=== PATIENT | male | born 1960 | race Two or more races ===

== ENCOUNTER 2016-10-21 11:04 | Emergency (ER) | payer SELFPAY ==
[~2016-10-21] VITALS: Ht 175.3 cm; Wt 87.8 kg
[2016-10-21 11:06] VITALS: BP 148/81
== END 2016-10-21 12:00 | disposition home or self-care (01) ==
LOC: ED 11:54
DX: S39.012A Strain of muscle, fascia and tendon of lower back, initial encounter (principal); F17.200 Nicotine dependence, unspecified, uncomplicated; X58.XXXA Exposure to other specified factors, initial encounter; Y93.89 Activity, other specified; Y92.89 Other specified places as the place of occurrence of the external cause; Y99.8 Other external cause status
CPT/HCPCS: 99281

== ENCOUNTER 2018-06-26 14:40 | Inpatient (IN) | payer MEDICAID, OTHER ==
[~2018-06-26] VITALS: Ht 175.3 cm; Wt 98.3 kg
[2018-06-26] MEDS ORDERED: ALBUTEROL/IPRATROPIUM 2.5MG/0.5MG, 3 ML NPPB ONE (15:00)
--- NOTE | 2018-06-26 15:01 | NUR ---
EKG DONE IN TRIAGE, PT PLACED ON 2L OXYGEN VIA NC IN TRIAGE.
[2018-06-26 15:37] LABS: BASOPHILS # (AUTO) 0.03 x10^3/uL (0-0.1); BASOPHILS % (AUTO) 0 % (0-1); EOSINOPHILS # (AUTO) 0.03 x10^3/uL (0-0.4); EOSINOPHILS % (AUTO) 0 % (1-7); LYMPHOCYTES # (AUTO) 1.01 x10^3/uL (1-3.4); LYMPHOCYTES % (AUTO) 12 % (22-44); MD NO; MEAN CORPUSCULAR HGB CONC 34.6 g/dL (33.2-36.2); MEAN CORPUSCULAR VOLUME 92.6 fL (81-97); MEAN PLATELET VOLUME 9.5 fL (7.4-10.4); MONOCYTES % (AUTO) 12 % (2-9); NEUTROPHILS % (AUTO) 75 % (42-75); PLATELET COUNT 124 x10^3/uL (130-400); RED BLOOD COUNT 5.51 x10^6/uL (4.38-5.82); RED CELL DISTRIBUTION WIDTH 12.4 % (9.4-14.8)
--- NOTE | 2018-06-26 15:42 | NUR ---
Pt wheeled to room with EDT. Pt ambulatory in room to change into gown and get on gurney. Pt c/o shortness of breath and a feeling that he can't describe in the left side of his chest/shoulder. Pt states that he has been unable to sleep. Pt also states that when he eats, he gets bloated, pt denies N/V/D, states he hasn't had a BM in 1.5 days.
[2018-06-26 15:47] LABS: ANION GAP 7 mmol/L (5-15); CALCIUM 8.4 mg/dL (8.5-10.1); CHLORIDE 107 mmol/L (98-107); CREATININE 1.02 mg/dL (0.7-1.3)
[2018-06-26 15:50] LABS: TROPONIN I < 0.015 ng/mL (0.000-0.045)
[2018-06-26] MEDS ORDERED: ALBUTEROL/IPRATROPIUM 2.5MG/0.5MG, 3 ML ONE (16:09)
--- NOTE | 2018-06-26 16:11 | NUR ---
RT at bedside. EMT student at bedside, with this RN, for IV start. Pt aware of plan to admit.
--- NOTE | 2018-06-26 16:14 | NUR ---
Dr. Alvarado at bedside to evaluate pt.
[2018-06-26] MEDS ORDERED: xanax PO (16:17)
[2018-06-26] MEDS ORDERED: HYDR25TA11 PO (16:21)
--- NOTE | 2018-06-26 16:26 | NUR ---
Pt medicated per MAR.
--- NOTE | 2018-06-26 16:58 | NUR ---
Telephone SBAR report given to RNSamira. Pt made aware of new room assignment.
[2018-06-26 17:32] VITALS: BP 118/75
[2018-06-26] MEDS ORDERED: GUAIFENESIN/DM 200-20MG, 10ML UDC PO PRN (18:00)
[2018-06-26] MEDS ORDERED: BISACODYL 10 MG SUPP PR PRN (18:00)
[2018-06-26] MEDS ORDERED: hydrALAzine 20 MG/ML, 1ML IVPush PRN (18:00)
[2018-06-26] MEDS ORDERED: ACETAMINOPHEN 325 MG TABLET PO PRN (18:00)
[2018-06-26] MEDS ORDERED: DOCUSATE 100 MG CAPSULE PO PRN (18:00)
[2018-06-26] MEDS ORDERED: POLYETHYLENE GLYCOL 17 GM PACKET PO PRN (18:00)
[2018-06-26] MEDS ORDERED: ENALAPRILAT 1.25 MG/ML, 2ML IVPush PRN (18:00)
[2018-06-26] MEDS: HEPARIN 5,000 UNITS/ML, 1ML SQ SCH (18:21)
[2018-06-26] MEDS: methylPREDNISolone SOD SUCC 40 MG/ML IV SCH (18:22)
[2018-06-26] MEDS: NICOTINE 14MG/24 HR PATCH.TD24 TD SCH (18:22)
[2018-06-26] MEDS: SODIUM CHLORIDE 0.9% 1,000 ML IV SCH (18:22)
[2018-06-26 19:03] VITALS: BP 134/75
[2018-06-26 19:13] LABS: BASOPHILS # (AUTO) 0.01 x10^3/uL (0-0.1); BASOPHILS % (AUTO) 0 % (0-1); EOSINOPHILS % (AUTO) 0 % (1-7); LYMPHOCYTES # (AUTO) 0.45 x10^3/uL (1-3.4); LYMPHOCYTES % (AUTO) 5 % (22-44); MD NO; MEAN CORPUSCULAR HEMOGLOBIN 32.1 pg (27.5-34.5); MEAN CORPUSCULAR HGB CONC 34.4 g/dL (33.2-36.2); MEAN CORPUSCULAR VOLUME 93.2 fL (81-97); MEAN PLATELET VOLUME 10.1 fL (7.4-10.4); MONOCYTES # (AUTO) 0.34 x10^3/uL (0.2-0.8); MONOCYTES % (AUTO) 4 % (2-9); NEUTROPHILS # (AUTO) 8.93 x10^3/uL (1.8-6.8); NEUTROPHILS % (AUTO) 92 % (42-75); PLATELET COUNT 128 x10^3/uL (130-400); RED BLOOD COUNT 5.57 x10^6/uL (4.38-5.82); RED CELL DISTRIBUTION WIDTH 12.6 % (9.4-14.8)
[2018-06-26 19:36] LABS: FREE T4 (FREE THYROXINE) 0.93 ng/dL (0.76-1.46); TROPONIN I < 0.015 ng/mL (0.000-0.045)
[2018-06-26 19:41] LABS: THYROID STIMULATING HORMONE 0.869 mIU/L (0.358-3.740)
[2018-06-26 19:49] LABS: HEMOGLOBIN A1C 6.6 % (4.2-6.3)
[2018-06-26] MEDS ORDERED: ALBUTEROL/IPRATROPIUM 2.5MG/0.5MG, 3 ML NPPB PRN (21:30)
[2018-06-27 00:52] LABS: TROPONIN I < 0.015 ng/mL (0.000-0.045)
[2018-06-27] MEDS: SODIUM CHLORIDE 0.9% 1,000 ML IV SCH ×3 (02:23→17:59)
[2018-06-27] MEDS: HEPARIN 5,000 UNITS/ML, 1ML SQ SCH ×3 (02:23→21:49)
[2018-06-27] MEDS: methylPREDNISolone SOD SUCC 40 MG/ML IV SCH ×3 (02:23→17:59)
[2018-06-27 02:36] VITALS: BP 126/74
[2018-06-27 06:34] LABS: ALBUMIN 3.4 g/dL (3.4-5.0); ANION GAP 5 mmol/L (5-15); CALCIUM 7.7 mg/dL (8.5-10.1); CHLORIDE 111 mmol/L (98-107)
[2018-06-27 06:38] LABS: ALANINE AMINOTRANSFERASE 40 U/L (12-78); ALKALINE PHOSPHATASE 58 U/L (45-117); BILIRUBIN,TOTAL 0.7 mg/dL (0.2-1.0); CREATININE 0.79 mg/dL (0.7-1.3); TOTAL PROTEIN 6.8 g/dL (6.4-8.2)
[2018-06-27 11:00] VITALS: BP 130/74
[2018-06-27] MEDS: AZITHROMYCIN 500 MG TABLET PO SCH (11:18)
[2018-06-27] MEDS: INSULIN LISPRO 100 UNITS/ML, PEN SQ-INSULIN SCH ×3 (13:10→21:49)
[2018-06-27 13:46] VITALS: BP 145/83
[2018-06-27 13:54] LABS: RAPID INFLUENZA A Negative (Negative); RAPID INFLUENZA B Negative (Negative)
[2018-06-27 14:14] LABS: MICROSCOPIC NOT IND
[2018-06-27 14:16] LABS: CULTURE INDICATED? NO
[2018-06-27] MEDS: NICOTINE 14MG/24 HR PATCH.TD24 TD SCH (17:59)
[2018-06-27 20:06] VITALS: BP 133/90
[2018-06-28] MEDS: SODIUM CHLORIDE 0.9% 1,000 ML IV SCH (02:05)
[2018-06-28] MEDS: methylPREDNISolone SOD SUCC 40 MG/ML IV SCH ×3 (02:05→17:13)
[2018-06-28 02:09] VITALS: BP 105/57
[2018-06-28] MEDS: HEPARIN 5,000 UNITS/ML, 1ML SQ SCH ×3 (06:19→22:06)
[2018-06-28 06:24] LABS: ALBUMIN 3.1 g/dL (3.4-5.0); ANION GAP 4 mmol/L (5-15); CALCIUM 7.9 mg/dL (8.5-10.1); CHLORIDE 113 mmol/L (98-107); CREATININE 0.93 mg/dL (0.7-1.3)
[2018-06-28 06:32] LABS: BASOPHILS % (AUTO) 0 % (0-1); EOSINOPHILS % (AUTO) 0 % (1-7); LYMPHOCYTES # (AUTO) 0.66 x10^3/uL (1-3.4); LYMPHOCYTES % (AUTO) 5 % (22-44); MD NO; MEAN CORPUSCULAR HEMOGLOBIN 32.4 pg (27.5-34.5); MEAN CORPUSCULAR HGB CONC 33.9 g/dL (33.2-36.2); MEAN CORPUSCULAR VOLUME 95.6 fL (81-97); MEAN PLATELET VOLUME 10.4 fL (7.4-10.4); MONOCYTES # (AUTO) 0.57 x10^3/uL (0.2-0.8); MONOCYTES % (AUTO) 4 % (2-9); NEUTROPHILS # (AUTO) 11.76 x10^3/uL (1.8-6.8); NEUTROPHILS % (AUTO) 91 % (42-75); PLATELET COUNT 130 x10^3/uL (130-400); RED BLOOD COUNT 4.89 x10^6/uL (4.38-5.82); RED CELL DISTRIBUTION WIDTH 12.8 % (9.4-14.8)
[2018-06-28 07:59] VITALS: BP 132/76
[2018-06-28] MEDS: AZITHROMYCIN 500 MG TABLET PO SCH (08:37)
[2018-06-28] MEDS: INSULIN LISPRO 100 UNITS/ML, PEN SQ-INSULIN SCH ×4 (08:37→22:07)
[2018-06-28 14:00] VITALS: BP 149/78
[2018-06-28] MEDS: NICOTINE 14MG/24 HR PATCH.TD24 TD SCH (17:13)
[2018-06-28] MEDS: ALBUTEROL/IPRATROPIUM 2.5MG/0.5MG, 3 ML HHN SCH (19:45)
[2018-06-29 01:51] VITALS: BP 135/67
[2018-06-29] MEDS: methylPREDNISolone SOD SUCC 40 MG/ML IV SCH ×3 (01:58→17:27)
[2018-06-29 05:18] LABS: BASOPHILS # (AUTO) 0.01 x10^3/uL (0-0.1); BASOPHILS % (AUTO) 0 % (0-1); EOSINOPHILS # (AUTO) 0.02 x10^3/uL (0-0.4); EOSINOPHILS % (AUTO) 0 % (1-7); LYMPHOCYTES # (AUTO) 0.59 x10^3/uL (1-3.4); LYMPHOCYTES % (AUTO) 6 % (22-44); MD NO; MEAN CORPUSCULAR HEMOGLOBIN 32.1 pg (27.5-34.5); MEAN CORPUSCULAR HGB CONC 33.3 g/dL (33.2-36.2); MEAN CORPUSCULAR VOLUME 96.3 fL (81-97); MONOCYTES # (AUTO) 0.54 x10^3/uL (0.2-0.8); MONOCYTES % (AUTO) 6 % (2-9); NEUTROPHILS # (AUTO) 8.05 x10^3/uL (1.8-6.8); NEUTROPHILS % (AUTO) 87 % (42-75); PLATELET COUNT 139 x10^3/uL (130-400); RED BLOOD COUNT 4.77 x10^6/uL (4.38-5.82); RED CELL DISTRIBUTION WIDTH 12.8 % (9.4-14.8)
[2018-06-29 05:22] LABS: CHLORIDE 111 mmol/L (98-107)
[2018-06-29 05:33] LABS: ANION GAP 6 mmol/L (5-15); CALCIUM 8.1 mg/dL (8.5-10.1); CREATININE 0.81 mg/dL (0.7-1.3)
[2018-06-29] MEDS: HEPARIN 5,000 UNITS/ML, 1ML SQ SCH ×3 (06:00→22:03)
[2018-06-29] MEDS: AZITHROMYCIN 500 MG TABLET PO SCH (08:01)
[2018-06-29] MEDS: INSULIN LISPRO 100 UNITS/ML, PEN SQ-INSULIN SCH ×4 (08:02→21:03)
[2018-06-29 08:09] VITALS: BP 142/85
[2018-06-29] MEDS: ALBUTEROL/IPRATROPIUM 2.5MG/0.5MG, 3 ML HHN SCH ×3 (09:10→20:59)
[2018-06-29 14:04] VITALS: BP 130/79
[2018-06-29] MEDS: NICOTINE 14MG/24 HR PATCH.TD24 TD SCH (17:28)
[2018-06-29 20:36] VITALS: BP 157/79
[2018-06-30] MEDS: methylPREDNISolone SOD SUCC 40 MG/ML IV SCH ×3 (01:10→17:27)
[2018-06-30 01:20] VITALS: BP 136/69
[2018-06-30] MEDS: HEPARIN 5,000 UNITS/ML, 1ML SQ SCH ×2 (05:53→14:19)
[2018-06-30 07:38] VITALS: BP 138/76
[2018-06-30] MEDS: AZITHROMYCIN 500 MG TABLET PO SCH (09:00)
[2018-06-30] MEDS: INSULIN LISPRO 100 UNITS/ML, PEN SQ-INSULIN SCH ×3 (09:04→17:27)
[2018-06-30] MEDS: ALBUTEROL/IPRATROPIUM 2.5MG/0.5MG, 3 ML HHN SCH ×2 (10:25→16:30)
[2018-06-30 12:42] VITALS: BP 138/80
[2018-06-30] MEDS ORDERED: ALBU8.5H8 INH (17:23)
[2018-06-30] MEDS ORDERED: FLUT1DIS3 INH (17:23)
[2018-06-30] MEDS ORDERED: AZIT500T5 PO (17:23)
[2018-06-30] MEDS ORDERED: PRED20TA PO (17:23)
[2018-06-30] MEDS: NICOTINE 14MG/24 HR PATCH.TD24 TD SCH (17:28)
== END 2018-06-30 18:49 | disposition home or self-care (01) | DRG 189 ==
LOC: ED 16:11 → EDIP 16:12 → ED 16:33 → 4EST 17:23
PROVIDERS: ADMIT Internal Medicine; ATTEND Internal Medicine
DX: J96.21 Acute and chronic respiratory failure with hypoxia (principal); D69.6 Thrombocytopenia, unspecified; E11.65 Type 2 diabetes mellitus with hyperglycemia; F17.210 Nicotine dependence, cigarettes, uncomplicated; F41.0 Panic disorder [episodic paroxysmal anxiety]; F41.1 Generalized anxiety disorder; I10 Essential (primary) hypertension; I27.20 Pulmonary hypertension, unspecified; J06.9 Acute upper respiratory infection, unspecified; J43.9 Emphysema, unspecified; K52.9 Noninfective gastroenteritis and colitis, unspecified; K59.00 Constipation, unspecified
CPT/HCPCS: 36415; 84145; 87400; 99285; J7620; 71046; 71275; 80048; 80053; 81003; 82040; 82962; 83036; 83735; 83880; 84439; 84443; 84484; 85025; 85379; 87040; 87070; 87205; 93005; 93306; 94640; 94664; G0378; J1644; J1815; J2920; J7030; J7512